=== PATIENT | male | born 1990 | race Caucasian/White ===

== ENCOUNTER 2019-08-21 15:46 | Emergency (ER) | payer OTHER ==
[~2019-08-21] VITALS: Ht 185.4 cm; Wt 87.0 kg
[2019-08-21 15:57] VITALS: BP 129/79
[2019-08-21] MEDS ORDERED: NEOMY/BACITR/POLYMYXIN OINT PACKET. TP ONE (16:30)
[2019-08-21] MEDS ORDERED: DIPHTH,PERTUSS(ACELL),TET TOX 0.5 ML DISP.SYRIN. VAX IM ONE (16:30)
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
--- NOTE | 2019-08-21 16:44 | RAD ---
Exam performed:Right ankle and foot 3 views. Indication: Pain Date of Service: 08/21/2019 . Comparison: None available Findings: AP, lateral and oblique views of the right foot and ankle are obtained. Normal alignment is preserved. There is no acute fracture or dislocation. There is mild soft tissue swelling, no definite foreign bodies identified. Impression: 1. No definite abnormality seen in the right foot and ankle . Electronically signed by: Kasey Whitten MD (08/21/2019 4:41 PM) [id number]
== END 2019-08-21 17:17 | disposition home or self-care (01) ==
LOC: ER 15:46
DX: S92.424A Nondisplaced fracture of distal phalanx of right great toe, initial encounter for closed fracture (principal); S93.401A Sprain of unspecified ligament of right ankle, initial encounter; S60.512A Abrasion of left hand, initial encounter; S60.511A Abrasion of right hand, initial encounter; V86.56XA Driver of dirt bike or motor/cross bike injured in nontraffic accident, initial encounter; Y93.55 Activity, bike riding; Y92.79 Other farm location as the place of occurrence of the external cause; Y99.8 Other external cause status
CPT/HCPCS: 73610; 73630; 90471; 90715; 99283

== ENCOUNTER → 2020-09-09 | Outpatient (CLI) | payer OTHER ==
[2020-09-09 12:02] LABS: BASO # 0.1 x10^3/uL (0.0-0.2); BASO % 1 % (0-3); EOS # 0.2 x10^3/uL (0.0-0.7); EOS % 4 % (0-3); HEMATOCRIT 42.3 % (39.0-53.0); HEMOGLOBIN 14.1 g/dL (13.0-17.5); LYMPH # 1.5 x10^3/uL (1.0-4.8); LYMPH % 28 % (24-48); MEAN CORPUSCULAR HEMOGLOBIN 31 pg (25-35); MEAN CORPUSCULAR HGB CONC 33 g/dL (31-37); MEAN CORPUSCULAR VOLUME 93 fL (79-100); MONO # 0.5 x10^3/uL (0.0-1.1); MONO % 10 % (0-9); NEUT % 57 % (31-73); PLATELET COUNT 206 x10^3/uL (140-400); RED BLOOD COUNT 4.57 x10^6/uL (4.30-5.70); RED CELL DISTRIBUTION WIDTH 13.6 % (11.5-14.5); WHITE BLOOD COUNT 5.3 x10^3/uL (4.0-11.0)
[2020-09-09 12:27] LABS: BACTERIA,URINE 0 /HPF (0-FEW); BILIRUBIN,URINE NEG (NEG); CLARITY,URINE CLEAR; COLOR,URINE YELLOW; GLUCOSE,URINE NEG (NEG); NITRITE,URINE NEG (NEG); SQUAMOUS EPITHELIAL CELL,UR OCC /LPF; UROBILINOGEN,URINE 0.2 mg/dL (0.2 mg/dL); WBC,URINE 0 /HPF (0-4)
[2020-09-09 12:38] LABS: ALBUMIN 4.1 g/dL (3.4-5.0); ALBUMIN/GLOBULIN RATIO 1.2 (1.0-1.7); CALCIUM 8.6 mg/dL (8.5-10.1); CREATININE 0.8 mg/dL (0.7-1.3); GFR 114.3; POTASSIUM 3.9 mmol/L (3.5-5.1); TOTAL BILIRUBIN 0.5 mg/dL (0.2-1.0); TOTAL PROTEIN 7.4 g/dL (6.4-8.2)
[2020-09-09 20:23] LABS: THYROID STIM HORMONE (TSH) 0.727 uIU/mL (0.358-3.740)
[2020-09-10 01:07] LABS: TESTOSTERONE TOTAL 515 ng/dL (264-916)
== END ==
LOC: LAB 10:05
PROVIDERS: ATTEND Family Medicine
DX: R31.9 Hematuria, unspecified (principal); E03.9 Hypothyroidism, unspecified; E78.00 Pure hypercholesterolemia, unspecified; E23.0 Hypopituitarism
CPT/HCPCS: 36415; 80053; 80061; 81001; 84403; 84443; 85025

== ENCOUNTER → 2020-09-12 | Outpatient (CLI) | payer OTHER ==
--- NOTE | 2020-09-12 16:17 | RAD ---
INDICATION: Reason: HEMATURIA / Spl. Instructions: / History: . COMPARISON: None. TECHNIQUE: Axial CT images obtained through the abdomen and pelvis without contrast. One or more of the following individualized dose reduction techniques were utilized for this examinat ion: 1. Automated exposure control; 2. Adjustment of the mA and/or kV according to patient size; 3 . Use of iterative reconstruction technique. FINDINGS: Abdominal aorta is not aneurysmal. No intrahepatic bile duct dilation. Gallbladder is contracted. Limited assessment of the pancreas without intravenous contrast. Spleen is unremarkable. No left-sided hydronephrosis. Urinary bladder partially distended. No right-sided hydronephrosis. The colon is decompressed with prominence of the wall. Appendix is partially seen without adjacent in flammatory changes. No dilated loops of bowel to suggest obstruction. L4 pars defects. Degenerative changes the spine. IMPRESSION: * No hydronephrosis. A definite radiopaque obstructive ureter stone is not seen. * The wall of the colon is prominent. The colon is not distended therefore this could be secondary t o a region of contraction but would correlate with symptoms to ensure there is not a pathologic cause such as mild colitis. Electronically signed by: Silas Elias MD (09/12/2020 4:14 PM) [id number]
== END ==
LOC: CT 15:17
PROVIDERS: ATTEND Family Medicine
DX: N20.1 Calculus of ureter (principal); R31.9 Hematuria, unspecified; K63.89 Other specified diseases of intestine
CPT/HCPCS: 74176